=== PATIENT | female | born 1945 | race Caucasian/White ===

== ENCOUNTER 2019-05-22 08:31 | Outpatient (CLI) | payer MEDICARE, SELFPAY ==
--- NOTE | 2019-05-22 08:40 | US_ITS ---
WS: [id number] ULTRASOUND SOFT TISSUES RIGHT medial calf. HISTORY: LEG PAIN, RIGHT COMPARISON: None available. TECHNIQUE: 2-D and color Doppler imaging is submitted. Ultrasound directed to the area of pain by the patient. Normal soft tissues the medial RIGHT calf. Th ere is a prominent muscular vein which is normal caliber with no thrombosis. US/US soft tissue/extremity [id number] IMPRESSION: Normal soft tissue ultrasound medial RIGHT calf. No hematoma.
== END 2019-05-22 08:32 | disposition home or self-care (01) ==
LOC: US 08:34
PROVIDERS: Family Provider Family Medicine; PCP Family Medicine; Visit Provider Family Medicine
DX: M79.604 Pain in right leg (principal)
CPT/HCPCS: 76882

== ENCOUNTER 2019-05-30 12:55 | Outpatient (CLI) | payer MEDICARE, SELFPAY ==
--- NOTE | 2019-05-30 13:01 | XR_ITS ---
WS: [id number] RIGHT KNEE: 3 VIEW(S) TECHNIQUE: AP, oblique(s) and lateral. HISTORY: POST FALL X 2 COMPARISON: 01/16/2018 No fracture or dislocation. Status post RIGHT knee arthroplasty. No fracture. No joint effusion. No soft tissue abnormality. XR/XR knee RT 3V* [id number] IMPRESSION: Status post RIGHT knee arthroplasty with no acute findings.
== END 2019-05-30 12:56 | disposition home or self-care (01) ==
LOC: RADWPI 12:58
PROVIDERS: Family Provider Family Medicine; PCP Family Medicine; Visit Provider Family Medicine
DX: M79.604 Pain in right leg (principal); Z96.651 Presence of right artificial knee joint
CPT/HCPCS: 73562

== ENCOUNTER → 2019-11-15 11:47 | Outpatient (BNVA) | payer MEDICARE, SELFPAY | PROVIDERS: Family Provider Family Medicine; PCP Family Medicine; Visit Provider Nurse Practitioner Family | DX: Z20.828 Contact with and (suspected) exposure to other viral communicable diseases (principal) | CPT/HCPCS: 87635 ==

== ENCOUNTER → 2020-01-11 10:03 | Outpatient (BNVA) | payer MEDICARE, SELFPAY | PROVIDERS: Family Provider Family Medicine; PCP Family Medicine; Visit Provider Nurse Practitioner | DX: R31.9 Hematuria, unspecified (principal) | CPT/HCPCS: 81000 ==

== ENCOUNTER 2020-02-25 10:47 | Outpatient (CLI) | payer MEDICARE, SELFPAY ==
--- NOTE | 2020-02-25 11:21 | US_ITS ---
WS: [id number] RENAL ULTRASOUND HISTORY: NEPHROLITHIASIS COMPARISON: None available. TECHNIQUE: 2-D and color Doppler imaging of the kidney submitted. Right kidney: 10.1 cm x 5.1 cm x 5.7 cm. Normal echogenicity with no hydronephrosis or mass. Left kidney: 9.9 cm x 5.3 cm x 5.8 cm. Normal echogenicity with no hydronephrosis or mass. Aorta: Normal. Urinary Bladder: Normal distention. US/US renal BI* [id number] IMPRESSION: Normal renal ultrasound.
== END 2020-02-25 10:48 | disposition home or self-care (01) ==
PROVIDERS: PCP Family Medicine; Visit Provider Family Medicine
DX: N20.0 Calculus of kidney (principal)
CPT/HCPCS: 76770

== ENCOUNTER → 2020-03-11 13:36 | Outpatient (BNVA) | payer MEDICARE, SELFPAY | PROVIDERS: PCP Family Medicine; Visit Provider Nurse Practitioner Family | DX: Z20.828 Contact with and (suspected) exposure to other viral communicable diseases (principal) | CPT/HCPCS: 87635 ==

== ENCOUNTER 2020-05-19 15:10 | Outpatient (CLI) | payer MEDICARE, SELFPAY ==
--- NOTE | 2020-05-19 15:25 | CT_ITS ---
WS: [id number] CT ABDOMEN PELVIS TECHNIQUE: Noncontrast CT of the abdomen and pelvis with coronal and sagittal reformatted images. CLINICAL INFORMATION: NEPHROLITHIASIS COMPARISON: None. DLP: 1094.[address] scans at [facility] use at least one of these dose optimization techniques: automat ed exposure control; mA and/or kV adjustment per patient size (includes targeted exams where dose is matched to clinical indication); or iterative reconstruction. FINDINGS: Prior hysterectomy. Noncontrast liver is normal. Normal gallbladder. Mild hepatomegaly. Mild fatty at rophy of the pancreas. Mild splenomegaly. Normal GE junction. A few benign calcified tiny pulmonary n odules in the lingula and left lower lobe largest measuring 5 mm. Tiny subpleural nodule right lower lobe. Adrenal glands are normal. No hydronephrosis in left kidney. Incidental left peripelvic cysts. No hyd ronephrosis in the left kidney. No obstructing renal or ureteral calculi. Low-attenuation lesion righ t mid kidney measuring 14 mm likely represents renal cyst. Tiny angiomyolipoma upper pole left kidney . This measures approximately 8 mm. Normal caliber abdominal aorta. Aortic calcification. No abdominal or pelvic lymphadenopathy. Tiny fa t-containing umbilical hernia. Noncontrast bladder appears unremarkable. No free fluid in the pelvis. No inguinal lymphadenopathy. Grade 1 anterolisthesis L5 on S1. CT/CT kidney stone [id number] IMPRESSION: 1. No hydronephrosis in either kidney. No obstructing renal or ureteral calcul i. 2. Left peripelvic renal cysts. Low-attenuation lesion right mid kidney measur e 1.5 cm likely represents renal cyst. This can be followed up with contrast-en hanced CT. 3. Mild hepatomegaly and splenomegaly. 4. A few noncalcified subcentimeter pulmonary nodules in the lung bases. Recom mend 6 month follow-up chest CT. 5. Incidental angiomyolipoma upper pole left kidney measuring 8 mm. 6. Normal caliber abdominal aorta. 7. Tiny fat-containing umbilical hernia.
== END 2020-05-19 15:11 | disposition home or self-care (01) ==
LOC: RADWPI 15:15
PROVIDERS: PCP Family Medicine; Visit Provider Family Medicine
DX: N20.0 Calculus of kidney (principal); K42.9 Umbilical hernia without obstruction or gangrene; D17.71 Benign lipomatous neoplasm of kidney; R91.8 Other nonspecific abnormal finding of lung field; R16.2 Hepatomegaly with splenomegaly, not elsewhere classified; Q61.02 Congenital multiple renal cysts
CPT/HCPCS: 74176

== ENCOUNTER → 2020-06-09 14:20 | Outpatient (BNVA) | payer MEDICARE, SELFPAY | PROVIDERS: PCP Family Medicine; Referring Provider Family Medicine; Visit Provider Nurse Practitioner Family | DX: N39.0 Urinary tract infection, site not specified (principal) | CPT/HCPCS: 81003; 87086 ==

== ENCOUNTER → 2020-06-30 10:09 | Outpatient (BNVA) | payer MEDICARE, SELFPAY | PROVIDERS: PCP Family Medicine; Visit Provider Urology | DX: N39.0 Urinary tract infection, site not specified (principal) | CPT/HCPCS: 81003 ==

== ENCOUNTER 2020-07-11 20:33 | Observation (INO) | payer MEDICARE, SELFPAY ==
[2020-07-11 20:34] VITALS: BP 147/89; PULSE 74; RESP 18; TEMP 36.7; O2SAT 96; BMI 31.6
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
[2020-07-11 21:20] LABS: Basophils # 0.1 10^3/uL (0.0-0.1); Basophils % 0.6 %; Eosinophils # 0.1 10^3/uL (0.0-0.8); Eosinophils % 1.3 %; Hematocrit 45.9 % (37.0-47.0); Lymphocytes % 21.3 %; Mean Corpuscular HGB Conc 32.7 g/dL (30.0-36.0); Mean Corpuscular Hemoglobin 31.8 pg (28.0-34.0); Mean Corpuscular Volume 97.5 fL (81-99); Mean Platelet Volume 8.8 fL (7.4-10.4); Monocytes # 0.7 10^3/uL (0.2-0.9); Monocytes % 7.2 %; Neutrophils # 6.39 10^3/uL (1.8-7.7); Neutrophils % 67.2 %; Nucleated Red Blood Cells % 0 %; Platelet Count 178 10^3/cmm (130-400); Red Blood Count 4.71 10^6/uL (4.1-5.3); Red Cell Distribution Width 13.7 % (12.1-15.1); White Blood Count 9.5 10^3/uL (4.0-10.0)
[2020-07-11 21:30] LABS: Alanine Aminotransferase 31 U/L (0-33); Albumin Level 4.5 g/dL (3.5-5.2); Alkaline Phosphatase 66 IU/L (35-105); Anion Gap 16.2 (5-19); Aspartate Amino Transferase 31 U/L (0-32); Blood Urea Nitrogen 18 mg/dL (8-23); Calcium 9.2 mg/dL (8.5-10.5); Carbon Dioxide 27 mmol/L (22-29); Chloride 100 mmol/L (98-107); Creatinine Clr Calc Pharmacy 47.9065; Globulin 2.5 g/dL (1.3-4.6); Glucose 108 mg/dL (65-115); Osmolality Calculated 290 mOsm/kg (285-295); Potassium 4.2 mmol/L (3.5-5.1); Sodium 139 mmol/L (136-145); Total Bilirubin 0.2 mg/dL (0.15-1.2)
[2020-07-11 21:38] VITALS: RESP 18
[2020-07-11] MEDS: ondansetron 2 mg/ML SDV 2 mL 4 MG IVP (21:38)
[2020-07-11] MEDS: sodium chloride 0.9% 1,000 ML 999 ML IV (21:38)
[2020-07-11] MEDS: morphine 4 mg/mL SDV 1 mL IVP (21:38)
[2020-07-11] MEDS: LORazepam 2 mg/mL INJ 1 mL 1 MG IVP (21:38)
[2020-07-11 22:24] LABS: Glucose Urine UA Norm (Normal); Ketones Urine Negative (Negative); Protein Urine Neg (Negative); Specific Gravity, Urine 1.015 (1.005-1.030); Urine Appearance Clear (CLEAR); Urine Color Yellow (Yellow); pH Urine 6 (5-7)
[2020-07-11 22:25] LABS: Add Urine Microscopic? YES; Bilirubin Urine Neg (Negative); Blood Urine 2+ (Negative); Leukocyte Esterase Urine Negative (Negative); Nitrate Urine Negative (Negative); Urobilinogen Urine Norm (Negative)
[2020-07-11 22:26] LABS: Add Urine Culture? No; Bacteria Urine TRACE /hpf; RBC Urine 0-4 /hpf (0-2); Squamous Epithelial Cell Urine 0-4 /hpf (0-5); WBC Urine 0-4 /hpf (0-5)
[2020-07-11] MEDS: iodixanol 320 mg/mL 100mL Btl IV (22:26)
[2020-07-11 23:00] VITALS: BP 134/94; PULSE 84; RESP 22; O2SAT 95
[2020-07-12] VITALS (11 sets, daily range): BP systolic 113–152; BP diastolic 71–78; PULSE 67–96; RESP 16–22; TEMP 36.3–36.6; O2SAT 90–95
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
[2020-07-12] MEDS: sodium chloride 0.9% 1,000 ML 100 ML IV ×2 (01:53→11:31)
[2020-07-12] MEDS: morphine 4 mg/mL SDV 1 mL IVP (01:55)
--- NOTE | 2020-07-12 07:40 | XRR_ITS ---
PROCEDURE INFORMATION: Exam: XR Chest Exam date and time: 07/12/2020 7:42 AM Age: 75 years old Clinical indication: Pain; Other: Rib; Additional info: Right ptx TECHNIQUE: Imaging protocol: XR of the chest. Views: 1 view. COMPARISON: CT chest abd pel w con* 07/11/2020 10:39 PM FINDINGS: Lungs: The lungs are clear bilaterally. Pulmonary vasculature within normal limits. Pleural space: No visible pneumothorax or pleural effusion. Heart/Mediastinum: Cardiomediastinal silhouette contour within normal limits. Bones/joints: No emergent findings identified. XR/XR chest 1V portable [id number] IMPRESSION: 1. No radiographic findings of acute cardiopulmonary disease.
[2020-07-12] MEDS: hydroCHLOROthiazide 25 mg Tablet 12.5 MG PO (08:49)
[2020-07-12] MEDS: metoprolol succinate ER (24 HR) 50 mg Tablet PO (08:50)
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
--- NOTE | 2020-07-12 10:34 | PC.PHAR ---
pt states she takes care of her own medications-pt verified medications-pts pharmacy not open to get med list-went off of ext med history and pt
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
--- NOTE | 2020-07-12 15:01 | PC.NURSE ---
pt iv taken out and intact. pt discharge instructions explained and questions answered. pt taken to exit via wheelchair.
== END 2020-07-12 15:03 | disposition home or self-care (01) ==
LOC: ER 22:05 → MEDSURG 07-12 00:16
PROVIDERS: Admitting Provider Surgery; Emergency Provider Emergency Medicine; PCP Family Medicine; Visit Provider Surgery
DX: S27.0XXA Traumatic pneumothorax, initial encounter (principal); S22.41XA Multiple fractures of ribs, right side, initial encounter for closed fracture; V09.9XXA Pedestrian injured in unspecified transport accident, initial encounter; I10 Essential (primary) hypertension; Z82.49 Family history of ischemic heart disease and other diseases of the circulatory system; Z87.891 Personal history of nicotine dependence
CPT/HCPCS: 70450; 71045; 71260; 72125; 74177; 80053; 81001; 85025; 96361; 96374; 96375; 97110; 97116; 97161; 99285; G0378; J2060; J2270; J2405; J7030; Q9967

== ENCOUNTER → 2020-08-18 14:26 | Outpatient (BNVA) | payer MEDICARE, SELFPAY | PROVIDERS: PCP Family Medicine; Visit Provider Nurse Practitioner Family | DX: Z20.822 Contact with and (suspected) exposure to COVID-19 (principal) | CPT/HCPCS: 87635 ==

== ENCOUNTER → 2021-03-23 16:02 | Outpatient (BNVA) | payer MEDICARE, SELFPAY | PROVIDERS: PCP Family Medicine; Visit Provider Urology | DX: N39.0 Urinary tract infection, site not specified (principal) | CPT/HCPCS: 81003 ==

== ENCOUNTER 2021-06-22 14:03 | Outpatient (CLI) | payer MEDICARE, SELFPAY ==
--- NOTE | 2021-06-22 10:00 | US_ITS ---
WS: [id number] ULTRASOUND RENAL TECHNIQUE: Ultrasound examination of both kidneys. CLINICAL INFORMATION: ANGIOMYOLIPOMA COMPARISON: None. FINDINGS: RIGHT: Right kidney is normal in size and appearance. Echogenicity: Normal. Cortical thickness: 1.3 cm; Normal. Hydronephrosis: None. Perinephric fluid: None. Right kidney measures: 9.2 cm x 3.7 cm x 4.0 cm. LEFT: Left kidney is normal in size and appearance. Echogenicity: Normal. Cortical thickness: 1.4 cm; Normal. Hydronephrosis: None. Perinephric fluid: None. Left kidney measures: 8.2 cm x 5.1 cm x 5.4 cm. Normal visualized aorta. Decompressed bladder. US/US renal BI* [id number] IMPRESSION: 1. No hydronephrosis in either kidney. 2. LEFT kidney is slightly smaller than the RIGHT. 3. 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 This is better evaluated on the prior CT May 19, 2020 4. Bladder is decompressed.
== END 2021-06-22 14:04 | disposition home or self-care (01) ==
PROVIDERS: PCP Family Medicine; Visit Provider Urology
DX: D17.71 Benign lipomatous neoplasm of kidney (principal)
CPT/HCPCS: 76770

== ENCOUNTER → 2021-07-26 11:10 | Outpatient (BNVA) | payer MEDICARE, SELFPAY | PROVIDERS: PCP Family Medicine; Visit Provider Clinical Nurse Specialist Adult Health | DX: R53.81 Other malaise (principal) | CPT/HCPCS: 80053; 82306; 82607; 85025 ==

== ENCOUNTER → 2021-11-03 09:31 | Outpatient (BNVA) | payer MEDICARE, SELFPAY | PROVIDERS: PCP Family Medicine; Visit Provider Nurse Practitioner Family | DX: I10 Essential (primary) hypertension (principal) | CPT/HCPCS: 99213 ==

== ENCOUNTER → 2022-05-04 13:47 | Outpatient (BNVA) | payer MEDICARE, SELFPAY | PROVIDERS: PCP Family Medicine; Visit Provider Internal Medicine Cardiovascular Disease | DX: I49.8 Other specified cardiac arrhythmias (principal); I34.1 Nonrheumatic mitral (valve) prolapse; I10 Essential (primary) hypertension; R94.31 Abnormal electrocardiogram [ECG] [EKG] | CPT/HCPCS: 99214 ==

== ENCOUNTER → 2022-10-19 14:12 | Outpatient (BNVA) | payer MEDICARE, SELFPAY | PROVIDERS: PCP Family Medicine; Visit Provider Internal Medicine Cardiovascular Disease | DX: I34.1 Nonrheumatic mitral (valve) prolapse (principal); I10 Essential (primary) hypertension; I49.8 Other specified cardiac arrhythmias; R06.02 Shortness of breath; R06.09 Other forms of dyspnea | CPT/HCPCS: 36415; 80048; 83880; 99214 ==

== ENCOUNTER 2022-12-29 10:45 | Outpatient (RCR) | payer MEDICARE, SELFPAY | END 2023-01-17 23:59 | disposition home or self-care (01) | LOC: SPT 10:45 | PROVIDERS: Visit Provider Student in an Organized Health Care Education/Training Program | DX: Z47.1 Aftercare following joint replacement surgery (principal); Z96.651 Presence of right artificial knee joint | CPT/HCPCS: 97110; 97161; G0283 ==

== ENCOUNTER 2023-01-18 06:00 | Outpatient (RCR) | payer MEDICARE, SELFPAY | END 2023-02-16 23:59 | disposition home or self-care (01) | LOC: SPT 06:00 | PROVIDERS: Visit Provider Student in an Organized Health Care Education/Training Program | DX: Z47.1 Aftercare following joint replacement surgery (principal); Z96.651 Presence of right artificial knee joint | CPT/HCPCS: 97110; G0283 ==

== ENCOUNTER → 2023-02-07 15:42 | Outpatient (BNVA) | payer MEDICARE, SELFPAY | PROVIDERS: PCP Clinical Nurse Specialist Adult Health; Visit Provider Clinical Nurse Specialist Adult Health | DX: R31.9 Hematuria, unspecified (principal); N39.0 Urinary tract infection, site not specified; M19.041 Primary osteoarthritis, right hand | CPT/HCPCS: 81000; 85025; 85651; 86140; 87077; 87086; 87184 ==

== ENCOUNTER 2023-02-17 06:00 | Outpatient (RCR) | payer MEDICARE, SELFPAY | END 2023-03-19 23:59 | disposition home or self-care (01) | LOC: SPT 06:00 | PROVIDERS: PCP Clinical Nurse Specialist Adult Health; Visit Provider Student in an Organized Health Care Education/Training Program | DX: Z47.1 Aftercare following joint replacement surgery (principal); Z96.651 Presence of right artificial knee joint | CPT/HCPCS: 97110 ==

== ENCOUNTER → 2023-03-01 14:37 | Outpatient (BNVA) | payer MEDICARE, SELFPAY | PROVIDERS: PCP Clinical Nurse Specialist Adult Health; Visit Provider Clinical Nurse Specialist Adult Health | DX: N39.0 Urinary tract infection, site not specified (principal); N39.41 Urge incontinence | CPT/HCPCS: 81000; 87086 ==

== ENCOUNTER 2023-03-20 06:00 | Outpatient (RCR) | payer MEDICARE, SELFPAY | END 2023-04-19 23:59 | disposition home or self-care (01) | LOC: SPT 06:00 | PROVIDERS: PCP Clinical Nurse Specialist Adult Health; Visit Provider Student in an Organized Health Care Education/Training Program | DX: Z47.1 Aftercare following joint replacement surgery (principal); Z96.651 Presence of right artificial knee joint | CPT/HCPCS: 97110 ==

== ENCOUNTER → 2023-04-04 10:14 | Outpatient (BNVA) | payer MEDICARE, SELFPAY | PROVIDERS: PCP Clinical Nurse Specialist Adult Health; Referring Provider Clinical Nurse Specialist Adult Health; Visit Provider Student in an Organized Health Care Education/Training Program | DX: M15.1 Heberden's nodes (with arthropathy) | CPT/HCPCS: 73130; 99204 ==

== ENCOUNTER 2023-04-20 06:00 | Outpatient (RCR) | payer MEDICARE, SELFPAY | END 2023-05-18 23:59 | disposition home or self-care (01) | LOC: SPT 06:00 | PROVIDERS: PCP Clinical Nurse Specialist Adult Health; Visit Provider Student in an Organized Health Care Education/Training Program | DX: Z47.1 Aftercare following joint replacement surgery (principal); Z96.651 Presence of right artificial knee joint | CPT/HCPCS: 97110 ==

== ENCOUNTER → 2023-04-24 14:14 | Outpatient (BNVA) | payer MEDICARE, SELFPAY | PROVIDERS: PCP Clinical Nurse Specialist Adult Health; Visit Provider Clinical Nurse Specialist Adult Health | DX: R10.31 Right lower quadrant pain (principal); I10 Essential (primary) hypertension | CPT/HCPCS: 80053; 85025; 85651; 86140 ==

== ENCOUNTER 2023-04-27 13:54 | Outpatient (CLI) | payer MEDICARE, SELFPAY ==
--- NOTE | 2023-04-27 14:00 | US_ITS ---
WS: [id number] ULTRASOUND ABDOMEN LIMITED CLINICAL INFORMATION: RUQ and RLQ abdominal pain COMPARISON: None. FINDINGS: Liver Size: Normal. Craniocaudal length: 14.5 cm. Echogenicity: Normal. Surface nodularity: None. Mass (size and location): None. Bile ducts Intrahepatic ducts: Normal. Common bile duct diameter: 0.6 cm Gallbladder Gallstones: Present Gallbladder sludge: None. Gallbladder wall thickening: None. Pericholecystic fluid: None. Sonographic Verma sign: Absent. Pancreas Normal as visualized. Right kidney: Normal. Hydronephrosis: None. Size: 0.09 (cm) cm x 0.04 (cm) cm x 0.05 (cm) cm. Abdominal aorta and IVC Visualized portions are normal. Ascites: None. IMPRESSION: 1. Densely shadowing cholelithiasis. 2. No gallbladder wall thickening or pericholecystic fluid. 3. Normal common bile duct. 4. Remainder normal
== END 2023-04-27 13:55 | disposition home or self-care (01) ==
LOC: RAD 13:54
PROVIDERS: PCP Clinical Nurse Specialist Adult Health; Visit Provider Clinical Nurse Specialist Adult Health
DX: R10.31 Right lower quadrant pain (principal)
CPT/HCPCS: 76705

== ENCOUNTER → 2023-05-02 15:49 | Outpatient (BNVA) | payer MEDICARE, SELFPAY | PROVIDERS: PCP Clinical Nurse Specialist Adult Health; Visit Provider Clinical Nurse Specialist Adult Health | DX: N39.0 Urinary tract infection, site not specified (principal) | CPT/HCPCS: 81000; 87086 ==

== ENCOUNTER → 2023-05-10 09:43 | Outpatient (BNVA) | payer MEDICARE, SELFPAY | PROVIDERS: PCP Clinical Nurse Specialist Adult Health; Visit Provider Clinical Nurse Specialist Adult Health | DX: R19.7 Diarrhea, unspecified (principal); R10.31 Right lower quadrant pain | CPT/HCPCS: 87045; 87046; 87177; 87209; 87427; 87449; 87493 ==

== ENCOUNTER → 2023-07-05 15:06 | Outpatient (BNVA) | payer MEDICARE, SELFPAY | PROVIDERS: PCP Clinical Nurse Specialist Adult Health; Visit Provider Podiatrist Foot & Ankle Surgery | DX: M79.672 Pain in left foot (principal); M20.42 Other hammer toe(s) (acquired), left foot | CPT/HCPCS: 73630; 99203 ==

== ENCOUNTER → 2023-07-27 07:58 | Outpatient (BNVA) | payer MEDICARE, SELFPAY | PROVIDERS: PCP Clinical Nurse Specialist Adult Health; Visit Provider Podiatrist Foot & Ankle Surgery | DX: M79.672 Pain in left foot (principal); M20.42 Other hammer toe(s) (acquired), left foot | CPT/HCPCS: 28010 ==

== ENCOUNTER → 2023-08-28 09:43 | Outpatient (BNVA) | payer MEDICARE, SELFPAY | PROVIDERS: PCP Clinical Nurse Specialist Adult Health; Visit Provider Podiatrist Foot & Ankle Surgery | DX: M20.42 Other hammer toe(s) (acquired), left foot (principal) | CPT/HCPCS: 28010 ==

== ENCOUNTER → 2023-09-04 10:00 | Outpatient (BNVA) | payer MEDICARE, SELFPAY | PROVIDERS: PCP Clinical Nurse Specialist Adult Health; Visit Provider Podiatrist Foot & Ankle Surgery | DX: M20.42 Other hammer toe(s) (acquired), left foot (principal) | CPT/HCPCS: 99213 ==

== ENCOUNTER → 2023-09-26 14:59 | Outpatient (BNVA) | payer MEDICARE, SELFPAY | PROVIDERS: PCP Clinical Nurse Specialist Adult Health; Visit Provider Podiatrist Foot & Ankle Surgery | DX: M20.42 Other hammer toe(s) (acquired), left foot (principal); R29.6 Repeated falls; M25.372 Other instability, left ankle | CPT/HCPCS: 99213 ==

== ENCOUNTER → 2023-10-05 13:38 | Outpatient (BNVA) | payer MEDICARE, SELFPAY | PROVIDERS: PCP Clinical Nurse Specialist Adult Health; Visit Provider Dermatology | DX: L21.8 Other seborrheic dermatitis (principal); L82.0 Inflamed seborrheic keratosis; L82.1 Other seborrheic keratosis; L81.5 Leukoderma, not elsewhere classified; L57.8 Other skin changes due to chronic exposure to nonionizing radiation; L81.4 Other melanin hyperpigmentation; D18.01 Hemangioma of skin and subcutaneous tissue; Z85.828 Personal history of other malignant neoplasm of skin | CPT/HCPCS: 17110; 99203 ==

== ENCOUNTER → 2023-10-09 11:43 | Outpatient (BNVA) | payer MEDICARE, SELFPAY | PROVIDERS: PCP Clinical Nurse Specialist Adult Health; Visit Provider Clinical Nurse Specialist Adult Health | DX: I10 Essential (primary) hypertension (principal); R06.02 Shortness of breath; F32.A Depression, unspecified | CPT/HCPCS: 80053; 83880; 85025 ==

== ENCOUNTER → 2023-10-17 10:47 | Outpatient (BNVA) | payer MEDICARE, SELFPAY | PROVIDERS: PCP Clinical Nurse Specialist Adult Health; Visit Provider Internal Medicine Cardiovascular Disease | DX: I49.8 Other specified cardiac arrhythmias (principal); I10 Essential (primary) hypertension; I34.1 Nonrheumatic mitral (valve) prolapse; K59.1 Functional diarrhea | CPT/HCPCS: 99214 ==

== ENCOUNTER 2023-10-26 13:20 | Outpatient (RCR) | payer MEDICARE, SELFPAY | END 2023-11-18 23:59 | disposition home or self-care (01) | LOC: SPT 13:20 | PROVIDERS: PCP Clinical Nurse Specialist Adult Health; Visit Provider Clinical Nurse Specialist Adult Health | DX: R29.6 Repeated falls (principal); R26.89 Other abnormalities of gait and mobility | CPT/HCPCS: 97110; 97112; 97161 ==

== ENCOUNTER 2023-11-19 06:00 | Outpatient (RCR) | payer MEDICARE, SELFPAY | END 2023-12-18 23:59 | disposition home or self-care (01) | LOC: SPT 06:00 | PROVIDERS: PCP Clinical Nurse Specialist Adult Health; Visit Provider Clinical Nurse Specialist Adult Health | DX: R29.6 Repeated falls (principal) | CPT/HCPCS: 97110; 97112 ==

== ENCOUNTER 2023-12-14 07:56 | Outpatient (CLI) | payer MEDICARE, SELFPAY ==
--- NOTE | 2023-12-14 08:00 | NM_ITS ---
WS: [id number] NUCLEAR MEDICINE HIDA SCAN WITH GALLBLADDER EJECTION FRACTION HISTORY: RUQ and RLQ pain COMPARISON: Ultrasound 07/05/2023 TECHNIQUE: The patient was intravenously injected with 7.6 mCi of TC99m Mebrofenin. Immediate imaging over the right upper quadrant was followed by 5 minute image and additional images for a total of 60 minutes. Normal uptake of radiotracer throughout the liver. Activity identified in the gallbladder at 10 minutes and minimally distended by 60 minutes. Activity in the proximal small bowel was seen by 30 minutes. Good washout of the radiotracer from the liver by 60 minutes. The patient then drank 8 ounces of Ensure Plus. Ejection fraction at 60 minutes was 93%. Normal GB ej ection fraction is 35-75%. Post fatty meal symptoms: None. NM/NM hepatobiliary w phar* [id number] IMPRESSION: 1. Normal HIDA scan. 2. Normal gallbladder ejection fraction.
== END 2023-12-14 07:57 | disposition home or self-care (01) ==
PROVIDERS: PCP Family Medicine; Visit Provider Clinical Nurse Specialist Adult Health
DX: R10.31 Right lower quadrant pain (principal); R10.11 Right upper quadrant pain
CPT/HCPCS: 78227; A9537

== ENCOUNTER → 2024-02-27 13:46 | Outpatient (BNVA) | payer MEDICARE, SELFPAY | PROVIDERS: PCP Family Medicine; Visit Provider Podiatrist Foot & Ankle Surgery | DX: M20.42 Other hammer toe(s) (acquired), left foot (principal); R29.6 Repeated falls; M25.372 Other instability, left ankle; R60.9 Edema, unspecified | CPT/HCPCS: 99213 ==

== ENCOUNTER → 2024-05-02 15:57 | Outpatient (BNVA) | payer MEDICARE, SELFPAY | PROVIDERS: PCP Family Medicine; Visit Provider Nurse Practitioner Family | DX: I49.8 Other specified cardiac arrhythmias (principal); I34.1 Nonrheumatic mitral (valve) prolapse; R60.0 Localized edema; Z13.1 Encounter for screening for diabetes mellitus; I10 Essential (primary) hypertension; R06.02 Shortness of breath | CPT/HCPCS: 36415; 80048; 83036; 83880; 85025; 99214 ==

== ENCOUNTER 2024-05-28 12:52 | Outpatient (CLI) | payer MEDICARE, SELFPAY ==
--- NOTE | 2024-05-28 12:45 | USCV_ITS ---
Shabnam Bonilla Age: 79 Gender: F : 1945 Exam Date: 05/28/2024 13:16 Ordering Phys: Esther Ochoa Technologist: [place] [facility] [place]: cp sob BP: 135 / 89 HR: 116 Rhythm: Sinus Technical Quality: Adequate MEASUREMENTS (Male / Female) Normal Values 2D ECHO LV Diastolic Diameter PLAX 4.4 cm 4.2 - 5.9 / 3.9 - 5.3 cm IVS Diastolic Thickness 1.2 cm 0.6 - 1.0 / 0.6 - 0.9 cm IVS Systolic Thickness 1.6 cm LVPW Diastolic Thickness 1.2 cm 0.6 - 1.0 / 0.6 - 0.9 cm LVPW Systolic Thickness 1.8 cm LVOT Diameter 2.0 cm LV Ejection Fraction 2D Teich 69.7 % LV Ejection Fraction MOD 4C 54.5 % LV Ejection Fraction MOD 2C 58.5 % LV Ejection Fraction 2C AL 59.0 % LA Diameter 3.2 cm RA Systolic Volume 4C AL 23.9 ml RA Systolic Volume 4C MOD 22.5 ml LA Sys Volume AL 50.7 cm cubed LA Sys Volume Index AL 24.3 cm cubed/m squared Aorta at Sinotubular Diameter 3.2 cm M-MODE LA Ao Ratio MM 1.3 AV Cusp Separation MM 2.1 cm DOPPLER AV Peak Velocity 132.0 cm/s LVOT Peak Velocity 85.0 cm/s AV Area Cont Eq vti 3.0 cm squared AV Area Cont Eq pk 2.0 cm squared MV Peak Velocity 96.0 cm/s MV Area PHT 4.2 cm squared Mitral E to A Ratio 0.7 TV Peak Velocity 163.5 cm/s TR Peak Velocity 189.0 cm/s TR Peak Gradient 14.3 mmHg TV Peak E Velocity 84.0 cm/s PV Peak Velocity 91.0 cm/s FINDINGS Left Ventricle Normal left ventricular size, systolic function and wall thickness, with no regional wall motion abnormalities. Left ventricular ejection fraction is estimated at 60 %. Grade I/IV diastolic dysfunction (abnormal relaxation filling pattern), normal to mildly elevated filling pressures. Right Ventricle The right ventricle is normal in size and function. Right Atrium The right atrium is normal in size. Left Atrium The left atrium is normal in size. Mitral Valve Structurally normal mitral valve without significant stenosis or prolapse. There is no mitral regurgitation. Aortic Valve Moderate aortic valve calcification. No aortic valve stenosis. Trace aortic valve regurgitation. Tricuspid Valve Trace tricuspid valve regurgitation. Pulmonic Valve Structurally normal pulmonic valve without significant stenosis. There is no pulmonic regurgitation. Pericardium Normal pericardium without effusion. Aorta Normal ascending aorta dimension. IVC The inferior vena cava appears normal. CONCLUSIONS Normal left ventricular size, systolic function and wall thickness, with no regional wall motion abnormalities. Left ventricular ejection fraction is estimated at 60 %. Grade I/IV diastolic dysfunction (abnormal relaxation filling pattern), normal to mildly elevated filling pressures. Moderate aortic valve calcification. No aortic valve stenosis. Trace aortic valve regurgitation. There is no pericardial effusion. Right atrial pressure is around 5 mm of mercury. Radha Charles MD (Electronically Signed) Final Date: 07 June 2024 09:01 S
== END 2024-05-28 12:53 | disposition home or self-care (01) ==
LOC: RAD 12:55
PROVIDERS: PCP Family Medicine; Visit Provider Nurse Practitioner Family
DX: I34.1 Nonrheumatic mitral (valve) prolapse (principal); R60.0 Localized edema; I49.9 Cardiac arrhythmia, unspecified; R93.1 Abnormal findings on diagnostic imaging of heart and coronary circulation; I35.8 Other nonrheumatic aortic valve disorders
CPT/HCPCS: 93306

== ENCOUNTER → 2024-05-31 13:39 | Outpatient (BNVA) | payer MEDICARE, SELFPAY | PROVIDERS: PCP Family Medicine; Visit Provider Family Medicine | DX: R39.9 Unspecified symptoms and signs involving the genitourinary system (principal) | CPT/HCPCS: 81000 ==

== ENCOUNTER → 2024-06-11 14:33 | Outpatient (BNVA) | payer MEDICARE, SELFPAY | PROVIDERS: PCP Family Medicine; Visit Provider Emergency Medicine | DX: R39.9 Unspecified symptoms and signs involving the genitourinary system (principal); N30.00 Acute cystitis without hematuria | CPT/HCPCS: 81000; 87086 ==

== ENCOUNTER → 2024-06-21 14:32 | Outpatient (BNVA) | payer MEDICARE, SELFPAY | PROVIDERS: PCP Family Medicine; Visit Provider Emergency Medicine | DX: R39.9 Unspecified symptoms and signs involving the genitourinary system (principal) | CPT/HCPCS: 81000 ==

== ENCOUNTER → 2024-07-03 16:36 | Outpatient (BNVA) | payer MEDICARE, SELFPAY | PROVIDERS: PCP Family Medicine; Visit Provider Emergency Medicine | DX: N39.0 Urinary tract infection, site not specified (principal) | CPT/HCPCS: 81000; 87086 ==

== ENCOUNTER → 2024-07-09 10:07 | Outpatient (BNVA) | payer MEDICARE, SELFPAY | PROVIDERS: PCP Family Medicine; Visit Provider Nurse Practitioner Family | DX: R60.0 Localized edema (principal); R06.02 Shortness of breath; I10 Essential (primary) hypertension; I34.1 Nonrheumatic mitral (valve) prolapse; I51.89 Other ill-defined heart diseases; I49.3 Ventricular premature depolarization; N39.0 Urinary tract infection, site not specified; N32.81 Overactive bladder; M72.2 Plantar fascial fibromatosis; Z79.82 Long term (current) use of aspirin | CPT/HCPCS: 99214 ==

== ENCOUNTER 2024-07-15 23:41 | Inpatient (IN) | payer MEDICARE, SELFPAY ==
[2024-07-15 23:43] VITALS: BP 148/84; PULSE 56; RESP 20; TEMP 36.3; O2SAT 97; BMI 33.3
--- NOTE | 2024-07-15 23:51 | ECG_ITS ---
[facility]: 2024-07[facility]15 Pat Name: Shabnam Bonilla Department: Room: ICU03 Gender: Female Import Export Coordinator: : 1945 Requested By: True Romero Order Number: [id number] Kelsie MD: Jan Lopez M.D. Measurements Intervals Tyler Rate: 54 P: 35 PA: 214 QRS: -33 QRSD: 99 T: -19 QT: 420 QTc: 399 Interpretive Statements SINUS BRADYCARDIA WITH FIRST DEGREE AV BLOCK LOW QRS VOLTAGE IN PRECORDIAL LEADS [QRS DEFLECTION < 1.0 mV IN CHEST LEADS] INFERIOR MYOCARDIAL INFARCTION , PROBABLY OLD [40+ ms Q WAVE AND/OR ST/T ABNORMALITY IN II/aVF] ANTEROSEPTAL MYOCARDIAL INFARCTION , POSSIBLY ACUTE [40+ ms Q WAVE IN V1-V4] MARKED ST ELEVATION, CONSIDER LATERAL INJURY [MARKED ST ELEVATION W/O NORMALLY INFLECTED T-WAVE IN I/aVL/V5/V6] ACUTE AR No previous ECG available for comparison Electronically Signed On 07-22-2024 10:20:30 CDT by Jan Lopez M.D. [id number]
[2024-07-15] MEDS: clopidogrel 300 mg Tablet 600 MG PO (23:56)
--- NOTE | 2024-07-15 23:56 | W.ED.CHESTPA ---
HPI - Chest Pain General: Chief Complaint: Chest Pain Stated Complaint: Chest Pains Time Seen by Provider: 07/15/24 23:54 History of Present Illness: Patient is a 79-year-old female seen for 10 of 10 chest pressure, lightheadedness, nausea, and shortness of breath which came on at home roughly 1 hour prior to arrival in the emergency department. She states that she recently had an echocardiogram performed on her heart which was normal and has no personal history of coronary artery disease. She does not smoke or drink alcohol excessively. gave her a baby aspirin prior to coming to the hospital. She denies recent sickness or fever and has no other acute complaints. Related Data Home Medications ?Medication ?Instructions ?Recorded ?Confirmed Natural Hormone Called Libido 1 tab PO PRN 07/12/20 07/09/24 acetaminophen 650 mg 650 mg PO PRN 07/12/20 07/09/24 tablet,extended release ascorbic acid (vitamin C) 1,000 mg 1 cap PO DAILY 07/12/20 07/09/24 capsule,extended release cholecalciferol (vitamin D3) 125 125 mcg PO DAILY 07/12/20 07/09/24 mcg (5,000 unit) tablet (Vitamin D3) potassium gluconate 595 mg (99 mg) 595 mg PO DAILY 07/12/20 07/09/24 tablet zinc 1 cap PO DAILY 07/12/20 07/09/24 Bacillus coagulans 800 million cell PO DAILY 06/22/21 07/09/24 cell tablet (Digestive Advantage Probiotics-Prebiotic) aspirin 81 mg capsule 81 mg PO DAILY 04/04/23 07/09/24 Previous Rx's ?Medication ?Instructions ?Recorded CALVERT-balance brace to LEFT #1 ea 09/26/23 famotidine 20 mg tablet 20 mg PO DAILY #30 tabs 11/10/23 hydrochlorothiazide 25 mg tablet 25 mg PO DAILY #30 tabs 11/10/23 diclofenac sodium 1 % topical gel 4 g topical QID #100 grams 04/15/24 (Voltaren Arthritis Pain) mupirocin 2 % topical ointment 1 applic topical BID #15 grams 04/15/24 amlodipine 5 mg tablet 5 mg PO DAILY #90 tabs 05/06/24 furosemide 40 mg tablet 40 mg PO DAILY PRN weight gain #90 05/06/24 tabs oxybutynin chloride 10 mg 10 mg PO .evening urine leakage 06/11/24 tablet,extended release 24 hr #30 tabs hydroxyzine HCl 50 mg tablet 50 mg PO .bedtime PRN sleep #20 06/21/24 tabs nitrofurantoin macrocrystal 100 mg 100 mg PO BID 7 days #14 caps 06/21/24 capsule Allergies Allergy/AdvReac Type Severity Reaction Status Date / Time Penicillins Allergy Unknown Unknown Verified 07/15/24 23:51 lisinopril Allergy UNKNOWN Verified 07/15/24 23:51 tolterodine AdvReac EXPERIENCED Verified 07/15/24 23:51 MAJORITY OF SIDE EFFECTS PFSH ED PFSH: Medical History Dysuria Chronic lower urinary tract infection Nocturia more than twice per night Pulmonary nodules/lesions, multiple Benign essential HTN Mitral valve prolapse Ventricular arrhythmia Renal cyst, right Angiomyolipoma of left kidney Urgency incontinence Recurrent UTI Idiopathic neuropathy Acquired hammer toe Hx of skin malignancy Degenerative arthritis of index finger of right hand Surgical History Hx of colonoscopy colonoscopy 10/2023 -1 polyp- Dr Diaz History of tonsillectomy and adenoidectomy H/O: hysterectomy History of appendectomy History of bilateral knee replacement Family History Father CAD (coronary artery disease) Stroke Cancer Mother CAD (coronary artery disease) Cancer Sister Cancer Chronic kidney disease (CKD) Lung disease Denies family history of Diabetes Clotting disorder Dementia Suicide Anesthesia complication Bleeding disorder Social History Smoking and tobacco/nicotine status: never used tobacco/nicotine Alcohol intake: never Substance/Drug Use: never Marital status: Current occupational status: retired Physical Exam Const: COMMON NORMALS: patient oriented x3 (Moderate distress due to pain.) and alert HENMT: COMMON NORMALS: normocephalic and atraumatic HEAD & SCALP: normocephalic and atraumatic Eye: COMMON NORMALS: Equal, round and reactive pupils present, EOMs intact bilaterally and no scleral icterus PUPIL: Yes Equal, round and reactive pupils present Resp: COMMON NORMALS: normal respiratory effort and No retractions Cardio: OTHER: Bradycardic, regular rhythm. Chest pain is not reproducible with palpation or deep inspiration. Trace edema on the legs. GI: COMMON NORMALS: Normal to inspection, nondistended, normoactive bowel sounds present, Soft to palpation and non-tender PALPATION: Yes Soft to palpation Neuro: COMMON NORMALS: patient oriented x3 (Moderate distress due to pain.) SENSORIUM/ORIENTATION: Yes alert Skin: COMMON NORMALS: no rashes or lesions noted GENERAL SKIN EXAM: no rashes or lesions noted Course Vital Signs: Vital signs: Vital Signs Temperature 97.3 F L 07/15/24 23:43 Pulse Rate 55 L 07/16/24 00:18 Respiratory Rate 19 H 07/16/24 00:18 Blood Pressure 131/88 07/16/24 00:18 Pulse Oximetry 93 07/16/24 00:18 Oxygen Delivery Me thod Room Air 07/16/24 00:18 MDM - Chest Pain Medical Decision Making Patient remained hemodynamically stable throughout ED course. Pain was somewhat relieved with morphine. She received Plavix, aspirin, and heparin. EKG shows ST elevation in leads I, aVL, and V2 with reciprocal inhibition of leads II, 3, aVF. I spoke with on-call invasive cardiology who will activate the catheterization lab for immediate intervention. Patient shows good understanding and agrees to the plan will be taken to the Junior Network Engineer in guarded but stable condition Lab Data Radiology Impressions Chest X-Ray 07/15/24 23:57 IMPRESSION: Borderline cardiomegaly. Laboratory Results Troponin T Baseline 106 ng/L (0-10) H* 07/15/24 23:49 No radiology studies performed this visit EKG Data EKG 1: Computer generated interpretation: Time?2342?sinus bradycardia, rate of 54, significant ST segment elevation of leads I, aVL, and V2 with reciprocal depression of leads II, 3, aVF consistent with STEMI. Discharge Plan Discharge Patient Disposition: Admitted As Inpatient Clinical Impression: ST elevation (STEMI) myocardial infarction Condition: Serious Coding Level of Care Code ED Senior Stereo Compiler Team Lead for Perri Stewart
[2024-07-15] MEDS: aspirin 81 mg Chew Tablet 324 MG (23:57)
--- NOTE | 2024-07-15 23:57 | XRR_ITS ---
PROCEDURE INFORMATION: Exam: XR Chest Exam date and time: 07/15/2024 11:46 PM Age: 79 years old Clinical indication: Chest pressure; C/O chest pain for last two days. Positive for st elevation on ekg. ; Additional info: Cp TECHNIQUE: Imaging protocol: Radiologic exam of the chest. Views: 1 view. COMPARISON: CR (CHEST, ) 07/12/2020 7:48 AM FINDINGS: Lungs: Mild left lower lung zone linear atelectasis versus scarring. No consolidation. Pleural spaces: No substantial pleural effusion or pneumothorax. Heart/Mediastinum: Borderline widened cardiac silhouette. Bones/joints: Degenerative changes along the spine. Other findings: Skin folds project over the right chest. XR/XR chest 1V portable [id number] IMPRESSION: Borderline cardiomegaly.
[2024-07-16] VITALS (48 sets, daily range): BP systolic 106–165; BP diastolic 64–104; PULSE 51–108; RESP 14–29; TEMP 36.1–37.5; O2SAT 93–97
[2024-07-16] MEDS: ondansetron 2 mg/ML SDV 2 mL 4 MG IVP
[2024-07-16] MEDS: morphine 4 mg/mL SDV 1 mL IVP (00:01)
[2024-07-16] MEDS: heparin 5,000 unit/mL INJ 1 mL 5000 UNIT INJECTION (00:02)
[2024-07-16] MEDS: sodium chloride 0.9% 1,000 ML 1000 ML (00:04)
[2024-07-16 00:18] LABS: Troponin(5th) Baseline 106 ng/L (0-10)
--- NOTE | 2024-07-16 00:20 | PM.HP ---
Providers/Chief Complaint Admitting Physician: Radha Charles MD Primary Care Provider: Mumtaz Luaren MD Chief Complaint: Chest Pains History of Present Illness Shabnam Bonilla is a 79 year old female past medical history significant for hypertension frequent falls noted recently, lower extremity edema nondiabetic non-smoker presented with 1 hour of chest pain. She was noted to have high lateral leads I and aVL ST elevation with inferior lead reciprocal ST depression suggestive of ST elevation AR. She rates her pain 7 out of 10. Patient was loaded with 600 mg of Plavix given aspirin 324 mg along with 4000 units of heparin. Patient has been explained all risk-benefit and alternative for the procedure she understand 2% risk of stroke major bleed, she understand 5% risk of minor bleeding bruising infection hematoma urgent emergent vascular and CT surgery. She and her by bedside understood it completely and would like to proceed with it. We will take her to the Dewaterer Operator. Medications/Allergies Home Medications ?Medication ?Instructions ?Recorded ?Confirmed ?Last Taken ?Type Natural Hormone Called Libido 1 tab PO PRN 07/12/20 07/09/24 Unknown History acetaminophen 650 mg 650 mg PO PRN 07/12/20 07/09/24 Unknown History tablet,extended release ascorbic acid (vitamin C) 1,000 mg 1 cap PO DAILY 07/12/20 07/09/24 Unknown History capsule,extended release cholecalciferol (vitamin D3) 125 125 mcg PO DAILY 07/12/20 07/09/24 Unknown History mcg (5,000 unit) tablet (Vitamin D3) potassium gluconate 595 mg (99 mg) 595 mg PO DAILY 07/12/20 07/09/24 Unknown History tablet zinc 1 cap PO DAILY 07/12/20 07/09/24 Unknown History Bacillus coagulans 800 million cell PO DAILY 06/22/21 07/09/24 Unknown History cell tablet (Digestive Advantage Probiotics-Prebiotic) aspirin 81 mg capsule 81 mg PO DAILY 04/04/23 07/09/24 Unknown History CALVERT-balance brace to LEFT #1 ea 09/26/23 07/09/24 Unknown Rx famotidine 20 mg tablet 20 mg PO DAILY #30 tabs 11/10/23 07/09/24 Unknown Rx hydrochlorothiazide 25 mg tablet 25 mg PO DAILY #30 tabs 11/10/23 07/09/24 Unknown Rx diclofenac sodium 1 % topical gel 4 g topical QID #100 grams 04/15/24 07/09/24 Unknown Rx (Voltaren Arthritis Pain) mupirocin 2 % topical ointment 1 applic topical BID #15 grams 04/15/24 07/09/24 Unknown Rx amlodipine 5 mg tablet 5 mg PO DAILY #90 tabs 05/06/24 07/09/24 Unknown Rx furosemide 40 mg tablet 40 mg PO DAILY PRN weight gain #90 05/06/24 07/09/24 Unknown Rx tabs oxybutynin chloride 10 mg 10 mg PO .evening urine leakage 06/11/24 07/09/24 Unknown Rx tablet,extended release 24 hr #30 tabs hydroxyzine HCl 50 mg tablet 50 mg PO .bedtime PRN sleep #20 06/21/24 07/09/24 Unknown Rx tabs nitrofurantoin macrocrystal 100 mg 100 mg PO BID 7 days #14 caps 06/21/24 07/09/24 Unknown Rx capsule Allergies Allergy/AdvReac Type Severity Reaction Status Date / Time Penicillins Allergy Unknown Unknown Verified 07/15/24 23:51 lisinopril Allergy UNKNOWN Verified 07/15/24 23:51 tolterodine AdvReac EXPERIENCED Verified 07/15/24 23:51 MAJORITY OF SIDE EFFECTS PFSH Acute PFSH: Medical History Dysuria Chronic lower urinary tract infection Nocturia more than twice per night Pulmonary nodules/lesions, multiple Benign essential HTN Mitral valve prolapse Ventricular arrhythmia Renal cyst, right Angiomyolipoma of left kidney Urgency incontinence Recurrent UTI Idiopathic neuropathy Acquired hammer toe Hx of skin malignancy Degenerative arthritis of index finger of right hand Surgical History Hx of colonoscopy colonoscopy 10/2023 -1 polyp- Dr Diaz History of tonsillectomy and adenoidectomy H/O: hysterectomy History of appendectomy History of bilateral knee replacement Family History Father CAD (coronary artery disease) Stroke Cancer Mother CAD (coronary artery disease) Cancer Sister Cancer Chronic kidney disease (CKD) Lung disease Denies family history of Diabetes Clotting disorder Dementia Suicide Anesthesia complication Bleeding disorder Social History (Reviewed 07/09/24 @ 13:16 by JESSICA Armenta Smoking and tobacco/nicotine status: never used tobacco/nicotine Alcohol intake: never Substance/Drug Use: never Marital status: Current occupational status: retired Vitals/I&O/Wt Last Vital Signs Temp 97.3 F L 07/15/24 23:43 Pulse 55 L 07/16/24 00:18 Resp 19 H 07/16/24 00:18 BP 131/88 07/16/24 00:18 Pulse Ox 93 07/16/24 00:18 O2 Del Method Room Air 07/16/24 00:18 07/15/24 07/15/24 07/16/24 14:59 22:59 06:59 Intake Total 0 / 0 Balance 0 / 0 Weight last 48 hrs Weight 200 lb Physical Exam Const: OTHER: GENERAL: Patient is alert, awake and oriented x3. She is in moderate discomfort HEART: Regular S1 and S2. No murmur, rub or gallop. LUNGS: Clear to auscultate bilaterally. CENTRAL NERVOUS SYSTEM: Grossly nonfocal. EXTREMITIES: Lower extremities with out edema bilaterally. A&P Assessment and plan (1) ST elevation (STEMI) myocardial infarction: (2) Fall at home: Qualifiers: Encounter type: subsequent encounter Qualified Code(s): W19.XXXD - Unspecified fall, subsequent encounter; Y92.009 - Unspecified place in unspecified non-institutional (private) residence as the place of occurrence of the external cause (3) Benign essential HTN: Plan Twelve-lead EKG is consistent with ST elevation AR we will proceed with urgent left heart cath/PCI if indicated. Patient as above has been explained all risk-benefit and alternative for the procedure she would like to proceed with it. Further plan be devised as per progress the patient. PDMP PDMP Reviewed: Not Reviewed Attestations Medical Necessity Statement*: This is an inpatient admission for ST ovation AR I am expecting her stay to cross more than 2 midnights. Coding Level of Care Code Acute Code for [facility] Fwd Diagnoses ST elevation (STEMI) myocardial infarction I21.3 Fall in home, subsequent encounter W19.XXXD; Y92.009 Encounter type: subsequent encounter Benign essential HTN I10
--- NOTE | 2024-07-16 01:17 | P.PCN_ITS ---
Procedure Note: Date of procedure: 07/16/24 Pre-procedure diagnosis: ST elevation mi Post-procedure diagnosis: same Procedure: Patient presented with ST elevation MD she was taken to the Snaker Tractor Driver noted 100% occluded proximal LAD it was treated with drug-eluting stent postdilated with noncompliant balloon. Excellent angiographic result ROSHNI-3 flow was achieved. Left ventricular end-diastolic pressure was noted to be around 24 mmHg Left ventricle ejection fraction 45 to 50% Continue aspirin statin Continue Plavix 75 mg from this morning Echocardiogram in the morning Full note to be dictated Coding Level of Care Code Acute Code for [facility]
--- NOTE | 2024-07-16 01:18 | USCV_ITS ---
Shabnam Bonilla Age: 79 Gender: F : 1945 Exam Date: 07/16/2024 03:20 Ordering Phys: Radha Charles MD ([email or web address]) Technologist: MICHELLE [place]am [place] [facility] [place]: cp BP: 133 / 84 HR: 59 Rhythm: Sinus Technical Quality: Adequate MEASUREMENTS (Male / Female) Normal Values 2D ECHO LV Diastolic Diameter PLAX 4.4 cm 4.2 - 5.9 / 3.9 - 5.3 cm IVS Diastolic Thickness 1.4 cm 0.6 - 1.0 / 0.6 - 0.9 cm IVS Systolic Thickness 1.7 cm LVPW Diastolic Thickness 1.3 cm 0.6 - 1.0 / 0.6 - 0.9 cm LVPW Systolic Thickness 1.3 cm LVOT Diameter 2.0 cm LV Ejection Fraction 2D Teich 59.2 % LV Ejection Fraction MOD 4C 67.6 % LV Ejection Fraction MOD 2C 65.6 % LV Ejection Fraction 2C AL 66.2 % LA Diameter 2.9 cm Aorta at Sinotubular Diameter 3.1 cm IVC Diameter 1.0 cm M-MODE LA Ao Ratio MM 1.5 AV Cusp Separation MM 1.8 cm DOPPLER AV Peak Velocity 154.0 cm/s LVOT Peak Velocity 77.0 cm/s AV Area Cont Eq vti 1.8 cm squared AV Area Cont Eq pk 1.5 cm squared MV Peak Velocity 113.0 cm/s MV Area PHT 2.6 cm squared Mitral E to A Ratio 0.6 TV Peak Velocity 218.3 cm/s TR Peak Velocity 229.0 cm/s TR Peak Gradient 21.0 mmHg TV Peak E Velocity 42.0 cm/s PV Peak Velocity 93.0 cm/s FINDINGS Left Ventricle Left ventricle is normal in size. LV systolic function is moderately reduced with EF of 35-40%. Severe hypokinesis of apical, anterior and anterolateral douglas. Grade 1 diastolic dysfunction Right Ventricle Normal in size and function Right Atrium Normal in size Left Atrium Normal in size Mitral Valve Grossly normal. Mild mitral regurgitation Aortic Valve Aortic valve is thickened. No significant stenosis or regurgitation Tricuspid Valve Mild tricuspid regurgitation. Pulmonary artery systolic pressure is normal Pulmonic Valve Not well visualized Pericardium Normal Aorta Normal in size IVC Appears to be normal CONCLUSIONS LV systolic function is moderately reduced with EF of 35-40%. Above mentioned regional wall motion abnormalities. Grade 1 diastolic dysfunction. Mild mitral regurgitation Mild tricuspid regurgitation Compared to prior echocardiogram from 05/2024, LV systolic function has decreased significantly. Jan Lopez MD (Electronically Signed) Final Date: 16 July 2024 21:12 S
--- NOTE | 2024-07-16 01:51 | ECG_ITS ---
[facility]: 2024-[facility]16 Pat Name: Shabnam Bonilla Department: Room: ICU03 Gender: Female Production Sorter: : 1945 Requested By: True Romero Order Number: [id number] Kelsie MD: Jan Lopez M.D. Measurements Intervals [place] Rate: 68 P: 47 AR: 214 QRS: -33 QRSD: 102 T: 30 QT: 419 QTc: 448 Interpretive Statements SINUS RHYTHM WITH FIRST DEGREE AV BLOCK LOW QRS VOLTAGE IN PRECORDIAL LEADS [QRS DEFLECTION < 1.0 mV IN CHEST LEADS] INFERIOR MYOCARDIAL INFARCTION , PROBABLY OLD [40+ ms Q WAVE AND/OR ST/T ABNORMALITY IN II/aVF] ANTEROSEPTAL MYOCARDIAL INFARCTION , PROBABLY RECENT [40+ ms Q WAVE IN V1-V4] MARKED ST ELEVATION, CONSIDER LATERAL INJURY [MARKED ST ELEVATION W/O NORMALLY INFLECTED T-WAVE IN I/aVL/V5/V6] ACUTE PR Electronically Signed On 07-22-2024 10:42:35 CDT by Jan Lopez M.D. [email or web address]
[2024-07-16 01:56] LABS: Basophils # 0.1 10^3/uL (0.0-0.1); Basophils % 0.5 %; Eosinophils # 0.1 10^3/uL (0.0-0.8); Eosinophils % 0.6 %; Hematocrit 42.2 % (36-47); Lymphocytes # 1.2 10^3/uL (0.8-4.8); Lymphocytes % 9.8 %; Mean Platelet Volume 9.6 fL (7.4-10.4); Monocytes # 0.6 10^3/uL (0.2-0.9); Monocytes % 5.3 %; Neutrophils # 9.93 10^3/uL (1.8-7.7); Neutrophils % 83.5 %; Nucleated Red Blood Cells % 0 %; Platelet Count 175 10^3/cmm (157-399); Red Blood Count 4.35 10^6/uL (3.85-5.65); Red Cell Distribution Width 13.5 % (12.1-15.1)
[2024-07-16 02:40] LABS: Blood Urea Nitrogen 12 mg/dL (8-23); Calcium 8.5 mg/dL (8.5-10.5); Carbon Dioxide 21 mmol/L (22-29); Chloride 103 mmol/L (98-107); Creatinine Clr Calc Pharmacy 63.4507; Glucose 145 mg/dL (65-115); Osmolality Calculated 282 mOsm/kg (285-295); Sodium 135 mmol/L (136-145)
[2024-07-16 02:41] LABS: Anion Gap 15.2 (5-19); Potassium 4.2 mmol/L (3.5-5.1)
[2024-07-16] MEDS: FUROsemide 10 mg/mL SDV 4mL 40 MG IVP ×2 (03:08→15:11)
--- NOTE | 2024-07-16 05:51 | ECG_ITS ---
[employer] Test Date: 2024-07-16 Pat Name: Shabnam Bonilla Department: Room: ICU03 Gender: Female Flaker Tender: : 1945 Requested By: True Romero Order Number: [id number] Kelsie MD: Jan Lopez M.D. Measurements Intervals [place] Rate: 68 P: 22 MA: 216 QRS: 35 QRSD: 105 T: -56 QT: 418 QTc: 447 Interpretive Statements SINUS RHYTHM WITH FIRST DEGREE AV BLOCK LOW QRS VOLTAGE [QRS DEFLECTION < 0.5/1.0 mV IN LIMB/CHEST LEADS] ANTEROSEPTAL MYOCARDIAL INFARCTION , PROBABLY RECENT [40+ ms Q WAVE IN V1-V4] MARKED ST ELEVATION, CONSIDER INFERIOR INJURY [MARKED ST ELEVATION W/O NORMALLY INFLECTED T-WAVE IN II/aVF] ACUTE AK Compared to ECG 07/16/2024 01:37:53 No significant changes Electronically Signed On 07-22-2024 10:42:05 CDT by Jan Lopez M.D. [email or web address]
--- NOTE | 2024-07-16 08:17 | PC.PHAR ---
Pt a bit muddled about medications but insisted on going over them because of all the otc supplements she takes.
[2024-07-16] MEDS: clopidogrel 75 mg Tablet PO (09:04)
[2024-07-16] MEDS: aspirin 81 mg EC Tablet PO (09:04)
--- NOTE | 2024-07-16 14:38 | P.PN_ITS ---
<Statement entered by Radha Charles MD - 07/21/24 11:27> Patient was evaluated and cared for in conjunction with an advanced practice practitioner. I personally examined the patient and reviewed the chart and all pertinent data including imaging, telemetry, and laboratory results. I discussed the patient in detail with the advanced practice practitioner. Please see their note for complete H&P testing result and agreed upon plan of care for the patient. Subjective 2 Subjective: Patient seen today doing very well with minimal complaints. States she does have some shortness of breath on exertion. Denies any chest pain. Blood pressure is elevated. Vitals/I&O/Wt Last Vital Signs Temp 97.7 F 07/16/24 13:30 Pulse 71 07/16/24 13:30 Resp 22 H 07/16/24 13:30 BP 157/86 07/16/24 13:30 Pulse Ox 96 07/16/24 13:30 O2 Del Method Room Air 07/16/24 13:30 07/15/24 07/16/24 07/16/24 22:59 06:59 14:59 Intake Total 0 / 0 Output Total 1600 / 1600 Balance -1600 / -1600 Weight last 48 hrs Weight 211 lb 10.3 oz Weight 200 lb Physical Exam 2 Narrative: General: No apparent distress, healthy appearing, well nourished Muskuloskeletal: Full ROM Lymphatic: no lymphedema noted Respiratory: Normal respiratory effort, crackles bilateral lower lobes clear throughout all other lung bautista, no use of accessory muscles Cardio: No JVD, regular rate, regular rhythm, S1 S2 normal, no murmurs, peripheral pulses 2+ throughout Extremities: Full ROM, normal, normal capillary refill, no cyanosis, 2+ nonpitting edema bilateral lower extremity Neuro: Alert and oriented x4, no focal motor deficits Psych: Affect normal, denies suicidal ideation, mental status grossly normal Skin: Hemosiderin staining bilaterally indicating probable chronic venous disease Urinary Catheter Management: Matute: Cath Placed During This Visit: yes Reason for Continuing Indwelling Catheter: Accurate Measurement of Urinary Output in Critically Ill Patients Urinary Catheter Date of Insertion: 07/16/24 Urinary Catheter Time of Insertion: 03:00 Data 07/16/24 01:49 07/16/24 02:15 A&P Assessment and plan (1) ST elevation (STEMI) myocardial infarction: (2) Fall at home: Qualifiers: Encounter type: subsequent encounter Qualified Code(s): W19.XXXD - Unspecified fall, subsequent encounter; Y92.009 - Unspecified place in unspecified non-institutional (private) residence as the place of occurrence of the external cause (3) Benign essential HTN: Plan Patient's EF during heart cath was seen at 45 to 50%. Will obtain another echo. This time continue aspirin Plavix and statin therapy. Will initiate low-dose beta-stacey 12.5 metoprolol succinate. Will start Entresto at low-dose twice daily. Patient will possibly be discharged tomorrow. PDMP PDMP Reviewed: Not Reviewed Attestations 2 Medical Necessity Statement*: Patient stay expected to cross 2 midnights due to STEMI requiring emergent PCI to the LAD. Coding Level of Care Code Acute Code for [facility] Diagnoses ST elevation (STEMI) myocardial infarction I21.3 Fall in home, subsequent encounter W19.XXXD; Y92.009 Encounter type: subsequent encounter Benign essential HTN I10
[2024-07-16] MEDS: metoprolol succinate ER (24 HR) 25 mg Tablet 12.5 MG PO (15:11)
[2024-07-16] MEDS: potassium chloride ER 20 mEq Tablet PO (18:19)
[2024-07-16] MEDS: sacubitril/valsartan 24-26 mg Tablet 1 EACH PO (18:19)
--- NOTE | 2024-07-16 18:46 | PC.NURSE ---
Pt has had not reported chest pain, nausea, dizziness or shortness of breath this shift. Sinus rhythm with ST elevation noted on monitor. Afebrile. She has sat up in chair twice. She was started on Entresto and Metoprolol, Plavix and baby aspirin. She has received Lasix. Urine output of 1850 ml noted. She has had a good appetite, eating most of her meals.
[2024-07-16] MEDS: atorvastatin 40 mg Tablet PO (20:44)
[2024-07-17] VITALS (28 sets, daily range): BP systolic 85–137; BP diastolic 60–84; PULSE 72–105; RESP 14–27; TEMP 36.2–37.3; O2SAT 93–98
[2024-07-17] MEDS: FUROsemide 10 mg/mL SDV 4mL 40 MG IVP (02:02)
[2024-07-17 05:53] LABS: Basophils # 0.1 10^3/uL (0.0-0.1); Basophils % 0.4 %; Eosinophils # 0.2 10^3/uL (0.0-0.8); Eosinophils % 1.7 %; Hematocrit 42.3 % (36-47); Lymphocytes # 1.6 10^3/uL (0.8-4.8); Lymphocytes % 12.7 %; Mean Corpuscular HGB Conc 33.1 g/dL (30-55); Mean Corpuscular Hemoglobin 31.3 pg (27-33); Mean Corpuscular Volume 94.6 fl (85-98); Mean Platelet Volume 9.1 fL (7.4-10.4); Monocytes % 8.4 %; Neutrophils # 9.33 10^3/uL (1.8-7.7); Neutrophils % 76.4 %; Nucleated Red Blood Cells % 0 %; Platelet Count 213 10^3/cmm (157-399); Red Blood Count 4.47 10^6/uL (3.85-5.65); Red Cell Distribution Width 13.7 % (12.1-15.1); White Blood Count 12.21 10^3/uL (3.29-11.43)
[2024-07-17 06:34] LABS: Blood Urea Nitrogen 14 mg/dL (8-23); Calcium 8.9 mg/dL (8.5-10.5); Carbon Dioxide 24 mmol/L (22-29); Chloride 97 mmol/L (98-107); Creatinine Clr Calc Pharmacy 58.0912; Glucose 105 mg/dL (65-115); Osmolality Calculated 285 mOsm/kg (285-295); Sodium 137 mmol/L (136-145)
[2024-07-17 06:38] LABS: Anion Gap 19.6 (5-19); Potassium 3.6 mmol/L (3.5-5.1)
[2024-07-17] MEDS: metoprolol succinate ER (24 HR) 25 mg Tablet 12.5 MG PO (08:24)
[2024-07-17] MEDS: clopidogrel 75 mg Tablet PO (08:24)
[2024-07-17] MEDS: aspirin 81 mg EC Tablet PO (08:25)
[2024-07-17] MEDS: sacubitril/valsartan 24-26 mg Tablet 1 EACH PO (08:25)
[2024-07-17] MEDS: potassium chloride ER 20 mEq Tablet PO (08:25)
--- NOTE | 2024-07-17 13:54 | PC.NURSE ---
Pt up to BSC. Then she ambulated from her room ICU 3 to visitor ICU entrance and back to her room. Heart rate 100-110, remained in sinus rhythm O2sats 91-95% on room air. She denied chest pain, dizziness and shortness of breath throughout walk. At the very end of walk she was also talking, slight shortness of breath noted by this nurse. BP 102/69 post ambulation. NARINDER Humphries, cardiology, notified of the results. Pt to discharge.
--- NOTE | 2024-07-17 14:11 | PC.NURSE ---
, Stephen notified of discharge. Fredrick McdonaldFrame Cleaner notified to be here in about an hour, for the signing of the advance directives.
--- NOTE | 2024-07-17 14:15 | P.DS_ITS ---
<Statement entered by Jan Lopez M.D - 07/18/24 07:50> Patient was evaluated and cared for in conjunction with an advanced practice practitioner.? I personally examined the patient and reviewed the chart and all pertinent data including imaging, telemetry, and laboratory results.? I discussed the patient in detail with the advanced practice practitioner.? Please see? their note for complete discharge summary, testing results and agreed upon plan of care for the patient. Patient is doing well. No symptoms. Will be discharged on dual antiplatelet agents. GENERAL: Patient is alert, awake and oriented x3. HEART: Regular S1 and S2 LUNGS: Clear to auscultate bilaterally. CENTRAL NERVOUS SYSTEM: Grossly nonfocal. EXTREMITIES: Lower extremities with out edema bilaterally. Discharge Providers Date of Admission: 07/16/24 01:23 Date of Discharge: July 17, 2024 Attending Provider at Admission: Radha Charles MD Attending Provider at Discharge: Radha Charles MD Primary Care Provider: Mumtaz Lauren MD Diagnoses at Discharge Discharge Diagnosis (1) ST elevation (STEMI) myocardial infarction: Status: Acute (2) Fall at home: Status: Acute Qualifiers: Encounter type: subsequent encounter Qualified Code(s): W19.XXXD - Unspecified fall, subsequent encounter; Y92.009 - Unspecified place in unspecified non-institutional (private) residence as the place of occurrence of the external cause (3) Benign essential HTN: Status: Acute Reason for Visit Reason for Visit: Chest Pains Brief History: Shabnam Bonilla is a 79 year old female past medical history significant for hypertension frequent falls noted recently, lower extremity edema nondiabetic non-smoker presented with 1 hour of chest pain. She was noted to have high lateral leads I and aVL ST elevation with inferior lead reciprocal ST depression suggestive of ST elevation [place]. She rates her pain 7 out of 10. Patient was loaded with 600 mg of Plavix given aspirin 324 mg along with 4000 units of heparin. Patient has been explained all risk-benefit and alternative for the procedure she understand 2% risk of stroke major bleed, she understand 5% risk of minor bleeding bruising infection hematoma urgent emergent vascular and CT surgery. She and her by bedside understood it completely and would like to proceed with it. We will took her to the Certified Coder. Hospital Course Hospital Course Patient was taken to the oil laboratory analyst. Noted 100% occluded proximal LAD it was treated with drug-eluting stent postdilated with noncompliant balloon. Excellent angiographic result ROSHNI-3 flow was achieved. Left ventricular end- diastolic pressure was noted to be around 24 mmHg. Left ventricle ejection fraction 45 to 50% on echo was 35-40%. She was taken to the ICU post cath and had an uneventful post cath course. She was started on Beta stacey, diuretics, aspirin, plavix, statin and Entresto. She went home in stable to improved condition. Physical Exam Narrative: General: No apparent distress, healthy appearing, well nourished Muskuloskeletal: Full ROM Lymphatic: no lymphedema noted Respiratory: Normal respiratory effort, fine crackles bilateral lower lobes clear throughout all other lung bautista, no use of accessory muscles Cardio: No JVD, regular rate, regular rhythm, S1 S2 normal, no murmurs, peripheral pulses 2+ throughout Extremities: Full ROM, normal, normal capillary refill, no cyanosis, 1+ nonpitting edema bilateral lower extremity Neuro: Alert and oriented x4, no focal motor deficits Psych: Affect normal, denies suicidal ideation, mental status grossly normal Skin: Hemosiderin staining bilaterally indicating probable chronic venous disease, post radial cath site clean, dry, intact w/o s/s of hematoma Urinary Catheter Management: Matute: Cath Placed During This Visit: yes, but has since been removed by the nurse Reason for Continuing Indwelling Catheter: Decision to DC Catheter Urinary Catheter Date of Insertion: 07/16/24 Urinary Catheter Time of Insertion: 03:00 Date Urinary Catheter Removed: 07/17/24 Time Urinary Catheter Discontinued: 11:00 Discharge Data Studies Completed and Pending Completed Studies During Hospitalization Category Date Time Status XR chest 1V portable [id number] Stat Exams 07/15/24 23:57 Completed CV. echo complete* [id number] Routine Ultrasound 07/16/24 01:18 Completed Pending at discharge Category Date Time Status SHIPPING ASSISTANT request for service Stat Exams 07/16/24 00:18 Taken Radiology Impressions Chest X-Ray 07/15/24 23:57 IMPRESSION: Borderline cardiomegaly. Laboratory Results WBC 12.21 10^3/uL (3.29-11.43) H 07/17/24 04:20 RBC 4.47 10^6/uL (3.85-5.65) 07/17/24 04:20 Hgb 14.00 g/dL (11.27-16.99) 07/17/24 04:20 Hct 42.3 % (36-47) 07/17/24 04:20 MCV 94.6 fl (85-98) 07/17/24 04:20 MCH 31.3 pg (27-33) 07/17/24 04:20 MCHC 33.1 g/dL (30-55) 07/17/24 04:20 RDW 13.7 % (12.1-15.1) 07/17/24 04:20 Plt Count 213 10^3/cmm (157-399) 07/17/24 04:20 MPV 9.1 fL (7.4-10.4) 07/17/24 04:20 Neut % (Auto) 76.4 % 07/17/24 04:20 Lymph % (Auto) 12.7 % 07/17/24 04:20 Power % (Auto) 8.4 % 07/17/24 04:20 Eos % (Auto) 1.7 % 07/17/24 04:20 Baso % (Auto) 0.4 % 07/17/24 04:20 Neut # (Auto) 9.33 10^3/uL (1.8-7.7) H 07/17/24 04:20 Lymph # (Auto) 1.6 10^3/uL (0.8-4.8) 07/17/24 04:20 Power # (Auto) 1.0 10^3/uL (0.2-0.9) H 07/17/24 04:20 Eos # (Auto) 0.2 10^3/uL (0.0-0.8) 07/17/24 04:20 Baso # (Auto) 0.1 10^3/uL (0.0-0.1) 07/17/24 04:20 Nucleated RBC % (auto) 0 % 07/17/24 04:20 Nucleated RBCs # 0.0 /100WBC 07/17/24 04:20 Sodium 137 mmol/L (136-145) 07/17/24 04:20 Potassium 3.6 mmol/L (3.5-5.1) 07/17/24 04:20 Chloride 97 mmol/L (98-107) L 07/17/24 04:20 Carbon Dioxide 24 mmol/L (22-29) 07/17/24 04:20 Anion Gap 19.6 (5-19) H 07/17/24 04:20 BUN 14 mg/dL (8-23) 07/17/24 04:20 Creatinine 0.9 mg/dL (0.5-0.9) 07/17/24 04:20 GFR Calculation Not Reportable 07/17/24 04:20 Glucose 105 mg/dL (65-115) 07/17/24 04:20 Calculated Osmolality 285 mOsm/kg (285-295) 07/17/24 04:20 Calcium 8.9 mg/dL (8.5-10.5) 07/17/24 04:20 Troponin T Baseline 106 ng/L (0-10) H* 07/15/24 23:49 Procedures Performed Date of procedure: 07/16/24 Pre-procedure diagnosis: ST elevation mi Post- procedure diagnosis: same Procedure: Patient presented with ST elevation NH she was taken to the Certified Coder noted 100% occluded proximal LAD it was treated with drug-eluting stent postdilated with noncompliant balloon. Excellent angiographic result ROSHNI-3 flow was achieved. Left ventricular end-diastolic pressure was noted to be around 24 mmHg Left ventricle ejection fraction 45 to 50% Vitals Last Vital Signs Temp 97.1 F L 07/17/24 07:30 Pulse 96 07/17/24 10:00 Resp 17 07/17/24 10:00 BP 85/60 07/17/24 10:00 Pulse Ox 94 07/17/24 10:00 O2 Del Method Room Air 07/17/24 10:00 Discharge Plan Discharge Patient Disposition: Home Condition: Stable Prescriptions: New atorvastatin 40 mg Tablet 40 mg PO BEDTIME Qty: 30 0RF clopidogrel 75 mg Tablet 75 mg PO DAILY Qty: 90 0RF aspirin 81 mg Tablet,Delayed Release (Dr/Ec) 81 mg PO DAILY Qty: 90 3RF potassium chloride [Klor-Con M20] 20 mEq Tablet,Er Particles/Crystals 20 meq PO DAILY Qty: 90 0RF metoprolol succinate 25 mg Tablet Extended Release 24 Hr 12.5 mg PO DAILY Qty: 30 0RF Entresto 24-26 mg Tablet 1 tab PO BID Qty: 30 0RF Continued (DME) CALVERT-balance brace to LEFT See Rx Instructions .Route .MEDSUPPLY Qty: 1 0RF Rx Instructions: As directed by [facility] famotidine 20 mg tablet 20 mg PO DAILY Qty: 30 11RF mupirocin 2 % ointment 1 applic topical BID Qty: 15 0RF diclofenac sodium [Voltaren Arthritis Pain] 1 % gel 4 g topical QID Qty: 100 0RF Rx Instructions: apply to single knee, ankle, foot; for foot includes sole/toes/top of foot oxybutynin chloride 10 mg tablet extended release 24hr 10 mg PO .evening Qty: 30 2RF acetaminophen 650 mg Tablet Extended Release 650 mg PO BID PRN (Reason: Pain (Scale Score 1-3)) cholecalciferol (vitamin D3) [Vitamin D3] 125 mcg (5,000 unit) Tablet 125 mcg PO DAILY latanoprost 0.005 % drops 1 drp ophthalmic (eye) QPM trazodone 50 mg tablet 75 mg PO BEDTIME zinc sulfate 50 mg zinc (220 mg) Tablet 50 mg PO DAILY ascorbic acid (vitamin C) [Vitamin C] 500 mg Tablet 500 mg PO BID L.acidoph,paracasei,B.animalis 10 billion cell Capsule 10 cell PO DAILY d-mannose 500 mg Capsule 500 mg PO DAILY Changed furosemide 40 mg tablet 40 mg PO DAILY Qty: 90 0RF Discontinued amlodipine 5 mg tablet 5 mg PO DAILY Qty: 90 3RF Rx Instructions: in pm potassium gluconate 595 mg (99 mg) Tablet 595 mg PO DAILY aspirin [Aspir-81] 81 mg Tablet,Delayed Release (Dr/Ec) 81 mg PO QAM Discharge Orders: Discharge Order (Routine); Ordered 07/17/24 Ordered By: Kristel Wallis Referrals: Kristel Wallis NP [Nurse Practitioner, Cardiology] - 7-10 days Mumtaz Lauren MD [Primary Care Provider, Family Practice] - 07/18/24 2:00 pm Referral Note: establish new patient status and post heart attack and post angiogram /coronary stent Patient Instructions: Opioid Safety Activity Restrictions/Additional Instructions: Discussed with patient no heavy lifting more than a gallon of milk as well as going up or down steps for 3 days. No driving for 3 days. Monitor for and report signs or symptoms of bleeding. Monitor for and report s/s of infection such as fever 101 or greater, swelling, redness or pain to the wrist. Plan of Treatment: Continue aspirin Plavix statin beta-stacey and Entresto. Follow-up in the clinic with blood pressure log in 1 week. Discharge Attestations Time Spent in Discharge Care*: less than 30 min Quality Metrics Clinical Quality Measures [ No reported AMI, CVA or VTE this stay] Coding Level of Care Code Acute Code for Chg Fwd Diagnoses ST elevation (STEMI) myocardial infarction I21.3 Fall in home, subsequent encounter W19.XXXD; Y92.009 Encounter type: subsequent encounter Benign essential HTN I10
--- NOTE | 2024-07-17 15:55 | PC.NURSE ---
Discharge instructions provided and discussed. All questions answered. Pt discharged home with .
== END 2024-07-17 16:00 | disposition home or self-care (01) | DRG 322 ==
LOC: ER 07-16 01:21 → ICU 07-16 01:24
PROVIDERS: Admitting Provider Internal Medicine Cardiovascular Disease; Emergency Provider Student in an Organized Health Care Education/Training Program; PCP Family Medicine; Visit Provider Internal Medicine Cardiovascular Disease
PROC: 027034Z Dilation of Coronary Artery, One Artery with Drug-eluting Intraluminal Device, Percutaneous Approach (ICD-10-PCS; principal; 2024-07-16 00:30)
PROC: 027034Z Dilation of Coronary Artery, One Artery with Drug-eluting Intraluminal Device, Percutaneous Approach (ICD-10-PCS; 2024-07-16 00:30)
DX: I21.3 ST elevation (STEMI) myocardial infarction of unspecified site (principal); Z79.82 Long term (current) use of aspirin; Z79.899 Other long term (current) drug therapy; Z88.0 Allergy status to penicillin; Z88.8 Allergy status to other drugs, medicaments and biological substances; I10 Essential (primary) hypertension; I34.1 Nonrheumatic mitral (valve) prolapse; W19.XXXD Unspecified fall, subsequent encounter
CPT/HCPCS: 36415; 51702; 71045; 80048; 84484; 85025; 85347; 93005; 93306; 93458; 96374; 96375; 96376; 99152; 99153; 99285; C1725; C1769; C1874; C1887; C1894; C9600; J1644; J1940; J2250; J2270; J2405; J3010; J3490; J7030; J9999; Q9967

== ENCOUNTER → 2024-07-26 08:03 | Outpatient (BNVA) | payer MEDICARE, SELFPAY | PROVIDERS: PCP Family Medicine; Visit Provider Nurse Practitioner Family | DX: I25.10 Atherosclerotic heart disease of native coronary artery without angina pectoris (principal); I11.0 Hypertensive heart disease with heart failure; I50.20 Unspecified systolic (congestive) heart failure; E78.5 Hyperlipidemia, unspecified; Z95.5 Presence of coronary angioplasty implant and graft | CPT/HCPCS: 80053; 85025; 99214 ==

== ENCOUNTER 2024-08-06 15:38 | Outpatient (RCR) | payer MEDICARE, SELFPAY | END 2024-08-17 23:59 | disposition home or self-care (01) | LOC: CR 15:38 | PROVIDERS: PCP Family Medicine; Referring Provider Nurse Practitioner Family; Visit Provider Nurse Practitioner Family | DX: I25.2 Old myocardial infarction (principal) | CPT/HCPCS: 93798 ==

== ENCOUNTER → 2024-08-14 10:31 | Outpatient (BNVA) | payer MEDICARE, SELFPAY | PROVIDERS: PCP Family Medicine; Visit Provider Nurse Practitioner Family | DX: I25.10 Atherosclerotic heart disease of native coronary artery without angina pectoris (principal); Z09 Encounter for follow-up examination after completed treatment for conditions other than malignant neoplasm; I11.0 Hypertensive heart disease with heart failure; I50.20 Unspecified systolic (congestive) heart failure; E78.5 Hyperlipidemia, unspecified; Z79.01 Long term (current) use of anticoagulants; Z79.82 Long term (current) use of aspirin; Z95.5 Presence of coronary angioplasty implant and graft; I25.2 Old myocardial infarction; R06.02 Shortness of breath | CPT/HCPCS: 36415; 80048; 83880; 99214 ==

== ENCOUNTER 2024-08-21 07:24 | Outpatient (RCR) | payer MEDICARE, SELFPAY | END 2024-09-16 23:59 | disposition home or self-care (01) | LOC: CR 07:24 | PROVIDERS: PCP Family Medicine; Referring Provider Nurse Practitioner Family; Visit Provider Nurse Practitioner Family | DX: I25.2 Old myocardial infarction (principal) | CPT/HCPCS: 93798 ==

== ENCOUNTER 2024-09-17 10:34 | Outpatient (RCR) | payer MEDICARE, SELFPAY | END 2024-10-17 23:59 | disposition home or self-care (01) | LOC: CR 10:34 | PROVIDERS: PCP Family Medicine; Referring Provider Nurse Practitioner Family; Visit Provider Nurse Practitioner Family | DX: I25.2 Old myocardial infarction (principal) | CPT/HCPCS: 93798 ==

== ENCOUNTER → 2024-09-18 14:08 | Outpatient (BNVA) | payer MEDICARE, SELFPAY | PROVIDERS: PCP Family Medicine; Visit Provider Internal Medicine Cardiovascular Disease | DX: I25.10 Atherosclerotic heart disease of native coronary artery without angina pectoris (principal); I50.20 Unspecified systolic (congestive) heart failure; I25.2 Old myocardial infarction; M72.2 Plantar fascial fibromatosis; Z87.898 Personal history of other specified conditions; G62.9 Polyneuropathy, unspecified; I11.0 Hypertensive heart disease with heart failure | CPT/HCPCS: 99214 ==

== ENCOUNTER 2024-10-18 12:36 | Outpatient (RCR) | payer MEDICARE, SELFPAY | END 2024-11-17 23:59 | disposition home or self-care (01) | LOC: CR 12:36 | PROVIDERS: PCP Family Medicine; Referring Provider Nurse Practitioner Family; Visit Provider Nurse Practitioner Family | DX: I25.2 Old myocardial infarction (principal) | CPT/HCPCS: 93798 ==

== ENCOUNTER 2024-11-19 13:16 | Outpatient (RCR) | payer MEDICARE, SELFPAY | END 2024-12-17 23:59 | disposition home or self-care (01) | LOC: CR 13:16 | PROVIDERS: PCP Family Medicine; Referring Provider Nurse Practitioner Family; Visit Provider Nurse Practitioner Family | DX: I25.2 Old myocardial infarction (principal) | CPT/HCPCS: 93798 ==

== ENCOUNTER → 2024-12-11 13:04 | Outpatient (BNVA) | payer MEDICARE, SELFPAY | PROVIDERS: PCP Family Medicine; Visit Provider Internal Medicine Cardiovascular Disease | DX: I11.0 Hypertensive heart disease with heart failure (principal); I50.20 Unspecified systolic (congestive) heart failure; I25.5 Ischemic cardiomyopathy; E78.5 Hyperlipidemia, unspecified; G60.9 Hereditary and idiopathic neuropathy, unspecified | CPT/HCPCS: 99214 ==

== ENCOUNTER 2024-12-18 11:03 | Outpatient (RCR) | payer MEDICARE, SELFPAY | END 2025-01-17 23:59 | disposition home or self-care (01) | LOC: CR 11:03 | PROVIDERS: PCP Family Medicine; Referring Provider Nurse Practitioner Family; Visit Provider Nurse Practitioner Family | DX: I25.2 Old myocardial infarction (principal) | CPT/HCPCS: 93798 ==

== ENCOUNTER → 2025-01-06 11:17 | Outpatient (BNVA) | payer MEDICARE, SELFPAY | PROVIDERS: PCP Family Medicine; Visit Provider Podiatrist Foot & Ankle Surgery | DX: M19.071 Primary osteoarthritis, right ankle and foot (principal) | CPT/HCPCS: 73630; 99213 ==

== ENCOUNTER → 2025-01-15 15:51 | Outpatient (BNVA) | payer MEDICARE, SELFPAY | PROVIDERS: PCP Family Medicine; Visit Provider Internal Medicine Cardiovascular Disease | DX: I11.0 Hypertensive heart disease with heart failure (principal); I50.23 Acute on chronic systolic (congestive) heart failure; I25.5 Ischemic cardiomyopathy; E78.5 Hyperlipidemia, unspecified; G60.9 Hereditary and idiopathic neuropathy, unspecified | CPT/HCPCS: 99214 ==

== ENCOUNTER 2025-01-18 13:25 | Outpatient (RCR) | payer SELFPAY | END 2025-02-16 23:59 | disposition home or self-care (01) | LOC: CR 13:25 | PROVIDERS: PCP Family Medicine; Referring Provider Nurse Practitioner Family; Visit Provider Nurse Practitioner Family | DX: I25.2 Old myocardial infarction (principal) ==

== ENCOUNTER 2025-02-17 12:21 | Outpatient (RCR) | payer SELFPAY | END 2025-03-19 23:59 | disposition home or self-care (01) | LOC: CR 12:21 | PROVIDERS: PCP Family Medicine; Referring Provider Nurse Practitioner Family; Visit Provider Nurse Practitioner Family | DX: I25.2 Old myocardial infarction (principal) ==

== ENCOUNTER 2025-02-20 15:04 | Outpatient (CLI) | payer MEDICARE, SELFPAY ==
--- NOTE | 2025-02-20 15:00 | USCV_ITS ---
Shabnam Bonilla Age: 79 Gender: F : 1945 Exam Date: 02/20/2025 15:19 Ordering Phys: Esther Ochoa Technologist: Exam Location: [facility] [place] Indication: cp sob BP: 120 / 70 HR: 81 Rhythm: Sinus Technical Quality: Adequate MEASUREMENTS (Male / Female) Normal Values 2D ECHO LV Diastolic Diameter PLAX 5.1 cm 4.2 - 5.9 / 3.9 - 5.3 cm IVS Diastolic Thickness 1.4 cm 0.6 - 1.0 / 0.6 - 0.9 cm IVS Systolic Thickness 1.7 cm LVPW Diastolic Thickness 1.0 cm 0.6 - 1.0 / 0.6 - 0.9 cm LVPW Systolic Thickness 2.0 cm LVOT Diameter 2.2 cm LV Ejection Fraction 2D Teich 66.9 % LV Ejection Fraction MOD 4C 67.3 % LV Ejection Fraction MOD 2C 70.8 % LV Ejection Fraction 2C AL 71.0 % LA Diameter 4.0 cm RA Systolic Volume 4C AL 34.8 ml RA Systolic Volume 4C MOD 33.1 ml LA Sys Volume AL 51.5 cm cubed LA Sys Volume Index AL 24.8 cm cubed/m squared Aorta at Sinotubular Diameter 3.0 cm M-MODE LA Ao Ratio MM 1.6 AV Cusp Separation MM 1.7 cm DOPPLER AV Peak Velocity 164.0 cm/s LVOT Peak Velocity 81.0 cm/s AV Area Cont Eq vti 2.2 cm squared AV Area Cont Eq pk 1.8 cm squared MV Peak Velocity 117.0 cm/s MV Area PHT 3.3 cm squared Mitral E to A Ratio 0.6 TV Peak Velocity 276.0 cm/s TR Peak Velocity 296.0 cm/s TR Peak Gradient 35.0 mmHg TV Peak E Velocity 117.0 cm/s PV Peak Velocity 91.0 cm/s FINDINGS Left Ventricle Normal left ventricular size with a slightly diminished systolic function, EF 45 to 50% (visual). Mild hypokinesia of the basal inferior wall segment. Mild left ventricular hypertrophy. No regional wall motion abnormalities. . Grade I/IV diastolic dysfunction (abnormal relaxation filling pattern), normal to mildly elevated filling pressures. Right Ventricle Normal right ventricular size and systolic function. Right Atrium Normal right atrial size. Left Atrium Mildly increased left atrial size. IA Septum Normal appearance of the interatrial septum. Mitral Valve Trace mitral valve regurgitation. Aortic Valve Mild aortic valve calcification. Trace aortic valve regurgitation. Tricuspid Valve Trace tricuspid valve regurgitation. Estimated pulmonary artery peak systolic pressure 38 mmHg Pulmonic Valve No gross abnormalities noted Pericardium No pericardial effusion. Aorta Normal aortic annulus size. IVC Inferior vena cava not visualized. CONCLUSIONS Normal left ventricular size with a slightly diminished ejection fraction of 45 to 50%. Mild hypokinesia of the basal inferior wall segment. Mild left ventricular hypertrophy. No regional wall motion abnormalities. . Grade I/IV diastolic dysfunction (abnormal relaxation filling pattern), normal to mildly elevated filling pressures. Mildly increased left atrial size. Trace mitral valve regurgitation. Mild aortic valve calcification. Trace aortic valve regurgitation. Trace tricuspid valve regurgitation. Estimated pulmonary artery peak systolic pressure 38 mmHg. There is no pericardial effusion. There are no intracardiac masses. Compared to the study from 07/16/2024, there is significant improvement in the LV ejection fraction from 35- 40% to 45-50%. Dr Zita Souza MD [facility] (Electronically Signed) Final Date: 21 February 2025 19:58 S
== END 2025-02-20 15:05 | disposition home or self-care (01) ==
LOC: RAD 15:06
PROVIDERS: PCP Family Medicine; Visit Provider Nurse Practitioner Family
DX: I25.5 Ischemic cardiomyopathy (principal); I50.20 Unspecified systolic (congestive) heart failure; I51.7 Cardiomegaly; I51.89 Other ill-defined heart diseases; I34.0 Nonrheumatic mitral (valve) insufficiency; I36.1 Nonrheumatic tricuspid (valve) insufficiency; I35.8 Other nonrheumatic aortic valve disorders
CPT/HCPCS: 93306

== ENCOUNTER → 2025-03-17 10:27 | Outpatient (BNVA) | payer MEDICARE, SELFPAY | PROVIDERS: PCP Family Medicine; Visit Provider Nurse Practitioner Family | DX: I49.9 Cardiac arrhythmia, unspecified (principal); I11.0 Hypertensive heart disease with heart failure; I50.20 Unspecified systolic (congestive) heart failure; I25.10 Atherosclerotic heart disease of native coronary artery without angina pectoris; E78.5 Hyperlipidemia, unspecified; I25.5 Ischemic cardiomyopathy; G62.9 Polyneuropathy, unspecified; I25.2 Old myocardial infarction | CPT/HCPCS: 99214 ==